=== PATIENT | female | born 1995 | race Caucasian/White ===

== ENCOUNTER 2017-02-27 10:04 | Emergency (ER) | payer BC ==
[2017-02-27 12:29] VITALS: BP 125/65
--- NOTE | 2017-02-27 13:15 | RAD ---
Indication: Left rib pain after fall 3 views of left ribs demonstrates no fracture. No evidence for bone or joint pathology is identified. 2 views of the chest and shape no pneumothorax. IMPRESSION: No fracture of the left ribs is noted.
--- NOTE | 2017-02-27 13:24 | UC ---
Back Pain HPI - HPI Summary HPI Summary: Patient presents with left sided rib pain after falling off a stool and hitting the side of her posterior rib cage. Bruise is noted. She states she had difficulty breathing temporarily with inspiration but denies currently. Denies other health problems. - History of Current Complaint Chief Complaint: UCTrauma Stated Complaint: RIB INJURY Time Seen by Provider: 02/27/17 12:43 Hx Obtained From: Patient Hx Last Menstrual Period: 02/26/17 ?: No Onset/Duration: Sudden Onset Timing: Constant Severity Initially: Moderate Severity Currently: Moderate Pain Intensity: 2 Pain Scale Used: 0-10 Numeric Back Pain: Is Discrete @ - left posterior ribs Aggravating: Movement Alleviating: Rest, Position Associated Signs And Symptoms: Positive: Bruising - Risk Factors AAA Risk Factors: Negative TAD Risk Factors: Negative Cauda Equina Risk Factors: Negative Epidural Abscess Risk Factors: Negative - Allergies/Home Medications Allergies/Adverse Reactions: Allergies Allergy/AdvReac Type Severity Reaction Status Date / Time IV BENEDRYL Allergy PSYCHOTIC Uncoded 02/27/17 12:29 EPISODE Home Medications: Home Medications ALPRAZolam TAB* [Xanax TAB*] 1 tab PO DAILY 02/27/17 [History Confirmed 02/27/17 ] Adalimumab [Humira Pen] 40 mg SUBCUT SEE INSTRUCTIONS 02/27/17 [History Confirmed 02/27/17] B-Complex Vitamins [Vitamin B Complex] 1 tab PO DAILY 02/27/17 [History Confirmed 02/27/17] Cholecalciferol [Vitamin D] 5,000 unit PO DAILY 02/27/17 [History Confirmed ] Fluoxetine HCl [Prozac] 1 tab PO DAILY 02/27/17 [History Confirmed 02/27/17] Thyroid [Nature-Throid] 32.5 mg PO DAILY 02/27/17 [History Confirmed 02/27/17] PMH/Surg Hx/FS Hx/Imm Hx Previously Healthy: Yes - Surgical History Surgical History: None - Social History Occupation: Employed Full-time Alcohol Use: Occasionally Substance Use Type: Marijuana Substance Use Comment - Amount & Last Used: Occassionally Smoking Status (MU): Never Smoked Tobacco Have You Smoked in the Last Year: No - Immunization History Vaccination Up to Date: Yes Review of Systems Constitutional: Negative Skin: Bruising - eccymosis surrounding left posterior side of ribs ENT: Negative Respiratory: Negative Cardiovascular: Negative Neurovascular: Negative Musculoskeletal: Arthralgia - left rib pain Neurological: Negative Psychological: Negative All Other Systems Reviewed And Are Negative: Yes Physical Exam Triage Information Reviewed: Yes Appearance: Well-Appearing, No Pain Distress, Well-Nourished Vital Signs: Initial Vital Signs Temp 97.5 F 02/27/17 12:24 Pulse 63 02/27/17 12:24 Resp 16 02/27/17 12:24 BP 125/65 02/27/17 12:24 Pulse Ox 99 02/27/17 12:24 Vital Signs Reviewed: Yes Eye Exam: Normal Eyes: Positive: Conjunctiva Clear Neck exam: Normal Neck: Positive: Supple, Nontender, No Lymphadenopathy Respiratory Exam: Normal Respiratory: Positive: Chest non-tender, Lungs clear Cardiovascular Exam: Normal Cardiovascular: Positive: RRR Musculoskeletal Exam: Normal Musculoskeletal: Positive: Strength Intact Neurological Exam: Normal Neurological: Positive: Alert Psychological: Positive: Normal Response To Family, Age Appropriate Behavior Skin Exam: Normal Back Pain Course/Dx - Course Course Of Treatment: Xray negative for fx. Lungs CTA. No acute distress. Note given for work on patients request. Encouraged to return for worsening symptoms. - Differential Dx/Diagnosis Differential Diagnosis/HQI/PQRI: Strain, Sprain, Other Provider Diagnoses: Rib Contusion Discharge - Discharge Plan Condition: Stable Disposition: HOME Patient Education Materials: Rib Contusion (ED) Forms: *Work Release Referrals: Maksim Hunt MD [Primary Care Provider] - Additional Instructions: Ibuprofen 600mg three times daily for pain and inflammation. Return to if symptoms become worse.
== END 2017-02-27 13:29 | disposition home or self-care (01) ==
LOC: UCEAST 10:04
DX: S20.212A Contusion of left front wall of thorax, initial encounter (principal); W07.XXXA Fall from chair, initial encounter; Y92.9 Unspecified place or not applicable
CPT/HCPCS: 99211; G0463

== ENCOUNTER 2019-03-09 14:00 | Emergency (ER) | payer BC ==
[2019-03-09 14:51] VITALS: BP 138/87
--- NOTE | 2019-03-09 15:11 | UC ---
Skin Complaint HPI - HPI Summary HPI Summary: Pt noticed a small hard ball behind her L ear today. She does not know how long its been there. does not cause pain. her mother is worried about cancer. - History of Current Complaint Chief Complaint: UCSkin Time Seen by Provider: 03/09/19 15:03 Stated Complaint: BUMP BEHIND EAR Hx Obtained From: Patient Hx Last Menstrual Period: 02/07/19 Pain Intensity: 5 - Allergy/Home Medications Allergies/Adverse Reactions: Allergies Allergy/AdvReac Type Severity Reaction Status Date / Time IV BENEDRYL Allergy PSYCHOTIC Uncoded 02/27/17 12:29 EPISODE Home Medications: Home Medications Dextroamphetamine/Amphetamine [Adderall Xr 20 mg Capsule] 1 tab PO DAILY PRN [History Confirmed 03/09/19] Ondansetron TAB* [Zofran 4 MG Tab*] 4 mg PO Q6H PRN 03/09/19 [History Confirmed 03/09/19] PMH/Surg Hx/FS Hx/Imm Hx Previously Healthy: Yes Endocrine History: Thyroid Disease Psychological History: Other - adhd - Surgical History Surgical History: None - Social History Alcohol Use: Weekly Substance Use Type: Marijuana Substance Use Comment - Amount & Last Used: Occassionally Smoking Status (MU): Never Smoked Tobacco Have You Smoked in the Last Year: No - Immunization History Vaccination Up to Date: Yes Review of Systems All Other Systems Reviewed And Are Negative: Yes Constitutional: Negative: Fever, Chills, Fatigue, Other - denies weight loss, denies night sweats. Skin: Positive: Other - small hard ball behind ear. Negative: Rash, Bruising ENT: Negative: Sore Throat, Ear Ache, Other - denies hearing problems or ear pain Respiratory: Positive: Negative Cardiovascular: Positive: Negative Physical Exam Triage Information Reviewed: Yes Appearance: Well-Appearing Vital Signs: Initial Vital Signs Temp 98.7 F 03/09/19 14:42 Pulse 99 03/09/19 14:42 Resp 15 03/09/19 14:42 BP 138/87 03/09/19 14:42 Pulse Ox 100 03/09/19 14:42 Vital Signs Reviewed: Yes ENT: Positive: Hearing grossly normal, Pharynx normal, TMs normal, Uvula midline , Other - NONTENDER POST AURICULAR, SMALL NODULE FELT JUST BELOW MASTOID BUT NO LYMPH INVOLVEMENT. approx 8mm Dental: Negative: Cervical Lymphadenopathy, Other: - NO post cervical lymphadenooathy Neck: Positive: Supple, No Lymphadenopathy Respiratory Exam: Normal Cardiovascular Exam: Normal Skin: Negative: Other - no redness at or around ears bilat Course/Dx - Course Course Of Treatment: Incidentally noticed a nontender small cystic mass behind ear. approx8 mm, and no redness. Not thought to be lymph-related and tried reassuring pt. about low likelihood of cancer given history. But we discussed when to follow up with pcp and they could perhaps obtain imaging. vitals good and no other organ sys involvement - Differential Diagnoses - Skin Complaint Differential Diagnoses: Abscess, Cellulitis - Diagnoses Provider Diagnosis: Cyst Discharge - Sign-Out/Discharge Documenting (check all that apply): Patient Departure All imaging exams completed and their final reports reviewed: No Studies - Discharge Plan Condition: Good Disposition: HOME Patient Education Materials: Cyst (ED) Referrals: Jordyn Castillo MD [Primary Care Provider] - Additional Instructions: I recommend you seeing your primary care to obtain an outpatient imaging like Ultrasound vs. CT - Billing Disposition and Condition Condition: GOOD Disposition: Home
== END 2019-03-09 15:23 | disposition home or self-care (01) ==
LOC: UCEAST 14:00
DX: L72.8 Other follicular cysts of the skin and subcutaneous tissue (principal); E07.9 Disorder of thyroid, unspecified
CPT/HCPCS: 99211; G0463

== ENCOUNTER 2019-04-16 17:13 | Emergency (ER) | payer BC ==
[2019-04-16] MEDS ORDERED: NS 0.9% 1000 ML** 1,000 ML IV ONE ×2 (19:12→21:19)
[2019-04-16 20:10] LABS: ABS Eosinophils 0.1 10^3/ul (0-0.6); ABS Lymphocytes 2.7 10^3/ul (1.0-4.8); ABS Monocytes 1.2 10^3/ul (0-0.8); ABS Neutrophils 6.5 10^3/ul (1.5-7.7); Eosinophil % 1.2 %; Hematocrit 44 % (35-47); Hemoglobin 14.7 g/dL (12.0-16.0); Lymphocyte % 25.5 %; Mean Corpuscular HGB Conc 34 g/dL (31-36); Mean Corpuscular Hemoglobin 29 pg (27-31); Mean Corpuscular Volume 87 fL (80-97); Mean Platelet Volume 7.6 fL (7.4-10.4); Platelet Count 320 10^3/uL (150-450); Red Blood Count 5.01 10^6 /uL (3.70-4.87); Red Cell Distribution Width 14 % (10-15); White Blood Count 10.6 10^3/uL (3.5-10.8)
[2019-04-16] MEDS ORDERED: Cyanocobalamin INJ * 1,000 MCG/ML VIAL 1 ML VIAL IM ONE (20:13)
[2019-04-16 20:26] LABS: ALT 15 U/L (7-52); AST 15 U/L (13-39); Albumin/Globulin Ratio 1.4 (1-3); Alkaline Phosphatase 51 U/L (34-104); Anion Gap 11 mmol/L (2-11); BUN/Creatinine Ratio 8.2 (8-20); Blood Urea Nitrogen 5 mg/dL (6-24); CO2 Carbon Dioxide 23 mmol/L (22-32); CRP High Sensitivity 14.08 mg/L (<2.00); Calcium 10.1 mg/dL (8.6-10.3); Chloride 104 mmol/L (101-111); EGFR African American 149.8 (>60); EGFR Non-African American 123.8 (>60); Globulin 3.5 g/dL (2-4); Glucose 95 mg/dL (70-100); Potassium 3.7 mmol/L (3.5-5.0); Sodium 138 mmol/L (135-145); Total Protein 8.5 g/dL (6.4-8.9)
[2019-04-16 20:31] LABS: HCG Pregnancy < 0.60 mIU/mL
--- NOTE | 2019-04-16 20:57 | ED ---
GI/ HPI - HPI Summary HPI Summary: Patient is a 23 y/o F w/ Hx of c.diff and Crohn's who presents to ED with complaints of diarrhea that onset two days ago. She states that she received a Dee Dee shot three days ago and subsequently experienced diarrhea. She reports around 15 episodes of diarrhea daily. Diarrhea is characterized as watery. Patient has been getting Dee Dee shots every twelve days for the past three years. She additionally notes that she has been having decreased PO intake and sharp abdominal cramping for the past few days but notes that she is currently on her menstrual cycle. On triage, pain is rated 6/10. She has been having some nausea in the past few hours. Urinary symptoms are denied. She states that a typical Crohn's flare-up consists of diffuse joint pain, "puffiness" and multiple episodes of diarrhea. Patient notes Hx of giardia parasite infection as well. - History of Current Complaint Chief Complaint: EDAbdPain Time Seen by Provider: 04/16/19 19:11 Stated Complaint: POSS INFECTION PER PT Hx Obtained From: Patient Hx Last Menstrual Period: 02/07/19 Onset/Duration: Started Hours Ago - nausea, Started Days Ago - diarrhea, abdominal pain, decreaed PO, Still Present Timing: Constant, Lasting Hours - nausea, Lasting Days - diarrhea, abdominal pain, decreaed PO Current Severity: Moderate Pain Intensity: 6 Pain Characteristics: Sharp, Cramping Associated Signs and Symptoms: Positive: Nausea, Diarrhea, Abdominal Pain, Other : - positive - decreased PO intake. 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 Denies: Hx Diabetes Cardiovascular History: Denies: Hx Hypertension, Hx Pacemaker/ICD Respiratory History: Denies: Hx Asthma, Hx Chronic Obstructive Pulmonary Disease (COPD) GI History: Reports: Hx Crohn's Disease Denies: Hx Ulcer History: Denies: Hx Renal Disease Sensory History: Denies: Hx Hearing Aid Psychiatric History: Denies: Hx Panic Disorder Infectious Disease History: No Infectious Disease History: Reports: Hx Clostridium Difficile Denies: Hx Hepatitis, Hx Human Immunodeficiency Virus (HIV), Traveled Outside the [place] in Last 30 Days - Family History Known Family History: Negative: Cardiac Disease, Hypertension, Diabetes - Social History Alcohol Use: Weekly Substance Use Type: Reports: Marijuana Substance Use Comment - Amount & Last Used: Occassionally Smoking Status (MU): Never Smoked Tobacco Have You Smoked in the Last Year: No Review of Systems Gastrointestinal: Other - positive - decreased PO intake Positive: Abdominal Pain, Diarrhea, Nausea Positive: no symptoms reported - no urinary Sx reported All Other Systems Reviewed And Are Negative: Yes Physical Exam - Summary Physical Exam Summary: Constitutional: Well-developed, Well-nourished, Alert. (-) Distressed Skin: Warm, Dry HENT: Normocephalic; Atraumatic Eyes: Conjunctiva normal Neck: Musculoskeletal ROM normal neck. (-) JVD, (-) Stridor, (-) Nuchal rigidity Cardio: Rhythm regular, rate normal, Heart sounds normal; Intact distal pulses; Radial pulses are 2+ and symmetric. (-) Murmur Pulmonary/Chest wall: Effort normal. (-) Respiratory distress, (-) Wheezes, (-) Rales Abd: Soft, mild diffuse tenderness, (-) Distension, (-) Guarding, (-) Rebound Musculoskeletal: (-) Edema Lymph: (-) Cervical adenopathy Neuro: Alert, Oriented x3 Psych: Mood and affect Normal Triage Information Reviewed: Yes Vital Signs On Initial Exam: Initial Vitals Temp Pulse Resp BP Pulse Ox 98.5 F 81 16 136/94 99 04/16/19 17:23 04/16/19 17:23 04/16/19 17:23 04/16/19 17:23 04/16/19 17:23 Vital Signs Reviewed: Yes Diagnostics - Vital Signs Vital Signs Temp Pulse Resp BP Pulse Ox 04/16/19 17:23 98.5 F 81 16 136/94 99 - Laboratory Lab Results: Lab Results 04/16/19 04/16/19 04/16/19 Range/Units 19:20 19:59 19:59 WBC 10.6 (3.5-10.8) 10^3/uL RBC 5.01 H (3.70-4.87) 10^6 /uL Hgb 14.7 (12.0-16.0) g/dL Hct 44 (35-47) % MCV 87 (80-97) fL MCH 29 (27-31) pg MCHC 34 (31-36) g/dL RDW 14 (10-15) % Plt Count 320 (150-450) 10^3/uL MPV 7.6 (7.4-10.4) fL Neut % (Auto) 61.7 % Lymph % (Auto) 25.5 % Costilla % (Auto) 11.3 % Eos % (Auto) 1.2 % Baso % (Auto) 0.3 % Absolute Neuts (auto) 6.5 (1.5-7.7) 10^3/ul Absolute Lymphs (auto) 2.7 (1.0-4.8) 10^3/ul Absolute Monos (auto) 1.2 H (0-0.8) 10^3/ul Absolute Eos (auto) 0.1 (0-0.6) 10^3/ul Absolute Basos (auto) 0.0 (0-0.2) 10^3/ul Absolute Nucleated RBC 0.0 10^3/ul Nucleated RBC % 0.0 Sodium 138 (135-145) mmol/L Potassium 3.7 (3.5-5.0) mmol/L Chloride 104 (101-111) mmol/L Carbon Dioxide 23 (22-32) mmol/L Anion Gap 11 (2-11) mmol/L BUN 5 L (6-24) mg/dL Creatinine 0.61 (0.51-0.95) mg/dL Est GFR ( Amer) 149.8 (>60) Est GFR (Non-Af Amer) 123.8 (>60) BUN/Creatinine Ratio 8.2 (8-20) Glucose 95 (70-100) mg/dL Lactic Acid (0.5-2.0) mmol/L Calcium 10.1 (8.6-10.3) mg/dL Total Bilirubin 0.30 (0.2-1.0) mg/dL AST 15 (13-39) U/L ALT 15 (7-52) U/L Alkaline Phosphatase 51 (34-104) U/L C-React Prot High Sens 14.08 H (<2.00) mg/L Total Protein 8.5 (6.4-8.9) g/dL Albumin 5.0 (3.2-5.2) g/dL Globulin 3.5 (2-4) g/dL Albumin/Globulin Ratio 1.4 (1-3) Lipase 12 (11.0-82.0) U/L Beta HCG, Quant < 0.60 mIU/mL Parasite Exam Pending 04/16/19 Range/Units 19:59 WBC (3.5-10.8) 10^3/uL RBC (3.70-4.87) 10^6 /uL Hgb (12.0-16.0) g/dL Hct (35-47) % MCV (80-97) fL MCH (27-31) pg MCHC (31-36) g/dL RDW (10-15) % Plt Count (150-450) 10^3/uL MPV (7.4-10.4) fL Neut % (Auto) % Lymph % (Auto) % Costilla % (Auto) % Eos % (Auto) % Baso % (Auto) % Absolute Neuts (auto) (1.5-7.7) 10^3/ul Absolute Lymphs (auto) (1.0-4.8) 10^3/ul Absolute Monos (auto) (0-0.8) 10^3/ul Absolute Eos (auto) (0-0.6) 10^3/ul Absolute Basos (auto) (0-0.2) 10^3/ul Absolute Nucleated RBC 10^3/ul Nucleated RBC % Sodium (135-145) mmol/L Potassium (3.5-5.0) mmol/L Chloride (101-111) mmol/L Carbon Dioxide (22-32) mmol/L Anion Gap (2-11) mmol/L BUN (6-24) mg/dL Creatinine (0.51-0.95) mg/dL Est GFR ( Amer) (>60) Est GFR (Non-Af Amer) (>60) BUN/Creatinine Ratio (8-20) Glucose (70-100) mg/dL Lactic Acid 1.3 (0.5-2.0) mmol/L Calcium (8.6-10.3) mg/dL Total Bilirubin (0.2-1.0) mg/dL AST (13-39) U/L ALT (7-52) U/L Alkaline Phosphatase (34-104) U/L C-React Prot High Sens (<2.00) mg/L Total Protein (6.4-8.9) g/dL Albumin (3.2-5.2) g/dL Globulin (2-4) g/dL Albumin/Globulin Ratio (1-3) Lipase (11.0-82.0) U/L Beta HCG, Quant mIU/mL Parasite Exam Result Diagrams: 04/16/19 19:59 04/16/19 19:59 Lab Statement: Any lab studies that have been ordered have been reviewed, and results considered in the medical decision making process. Re-Evaluation - Re-Evaluation First Eval Re-Evaluation Time: 21:21 Comment: Patient feeling better. Patient prescription for Flagyl as this is the only antibiotic that her GI doctor would like her to take. She is going to call her GI doctor in the morning well send Flagyl to her pharmacy. Results of labs and tests were discussed. Patient will be discharged to home and follow up with PCP and GI within three days. GIGU Course/Dx - Course Course Of Treatment: 31-year-old female with history of Crohns disease presents with diffuse diarrhea. Check labs including a CRP. Will give IV fluids, send stool studies including a C. difficile and ova and parasites. Minimal abdominal pain on exam, suspect 2/2 diarrhea. - Diagnoses Provider Diagnoses: Dehydration, Diarrhea Discharge - Sign-Out/Discharge Documenting (check all that apply): Patient Departure - discharge Patient Received Moderate/Deep Sedation with Procedure: No - Discharge Plan Condition: Stable Disposition: HOME Prescriptions: metroNIDAZOLE [Flagyl 500 MG TAB] 500 mg PO TID 7 Days #21 tab Patient Education Materials: Dehydration (ED), Acute Diarrhea (ED) Referrals: Reji Miranda DO [Doctor of Osteopathy] - 3 Days Jordyn Castillo MD [Primary Care Provider] - 3 Days Additional Instructions: You were seen in the emergency department for diarrhea. Your labs showed CRP of 14. Cdiff was negative. Your stool studies are pending. If any studies were not completed at the time of discharge you will be called with the relevant results. Please follow up with your primary care doctor and blow molder in the next 2-3 days and return to the emergency department for worsening or concerning symptoms. It was a pleasure taking care of you today. - Billing Disposition and Condition Condition: STABLE Disposition: Home - Attestation Statements Document Initiated by Scribe: Yes Documenting Scribe: ADE CONNER Provider For Whom Guerrero is Documenting (Include Credential): AUDRA PEREZ MD Scribe Attestation: I, ADE CONNER, scribed for AUDRA PEREZ MD on 04/16/19 at 2210. Scribe Documentation Reviewed: Yes Provider Attestation: The documentation as recorded by the ADE claire accurately reflects the service I personally performed and the decisions made by me, AUDRA PEREZ MD Status of Scribe Document: Viewed
[2019-04-17 01:18] VITALS: BP 0/0
--- NOTE | 2019-04-17 16:31 | PN ---
Progress Note - Progress Note Date of Service: 04/16/19 Note: [facility] called today stating that crypto ag was interderminant. Reportedly first test was positive but confirmatory test was negative. Sample being sent to outside lab for final confirmation. Pt. was treated with flagyl.
== END 2019-04-17 01:17 | disposition home or self-care (01) ==
LOC: ED 17:13
DX: E86.0 Dehydration (principal); R19.7 Diarrhea, unspecified; R11.0 Nausea; K50.90 Crohn's disease, unspecified, without complications; Z88.8 Allergy status to other drugs, medicaments and biological substances
CPT/HCPCS: 36415; 80053; 83605; 83690; 84702; 85025; 86141; 87045; 87046; 87177; 87209; 87328; 87329; 87493; 87899; 96372; 99282; J3420